=== PATIENT | male | born 1945 | race Caucasian/White ===

== ENCOUNTER 2018-07-05 16:18 | Outpatient (CLI) | payer MEDICARE, SELFPAY ==
[2018-07-05 17:01] LABS: Hemoglobin A1C 7.2 % (4.5-6.2)
[2018-07-05 17:52] LABS: Cholesterol 191 mg/dL (50-200); HDL Cholesterol 42 mg/dL (40-60); LDL CHOLESTEROL 132 mg/dL (<100); Triglyceride 82 mg/dL (30-150)
== END 2018-07-05 16:38 ==
PROVIDERS: PCP Family Medicine; Visit Provider Family Medicine
DX: E11.9 Type 2 diabetes mellitus without complications (principal); I25.10 Atherosclerotic heart disease of native coronary artery without angina pectoris
CPT/HCPCS: 36415; 80061; 83721; 83036

== ENCOUNTER 2019-01-18 09:23 | Outpatient (CLI) | payer MEDICARE, SELFPAY ==
[2019-01-20 11:45] LABS: Hemoglobin A1C 9.7 % (4.5-6.2)
== END 2019-01-18 09:43 ==
PROVIDERS: PCP Family Medicine; Visit Provider Family Medicine
DX: E11.9 Type 2 diabetes mellitus without complications (principal)
CPT/HCPCS: 36415; 83036

== ENCOUNTER 2019-09-27 18:36 | Emergency (ER) | payer MEDICARE, SELFPAY ==
[2019-09-27] VITALS (24 sets, daily range): BP systolic 108–156; BP diastolic 53–87; PULSE 68–87; RESP 8–35; TEMP 36.5; O2SAT 88–97
--- NOTE | 2019-09-27 18:45 | DI.CT_ITS ---
EXAM: CT THORAX CTA CLINICAL HISTORY: Chest pain after lifting. TECHNIQUE: Imaging Protocol: Axial CT angiography was performed with multi-slice acquisition and mu lti-planar and/or 3D reconstructions. CONTRAST MATERIAL: Intravenous: Omnipaque 350 Contrast volume:100 mL COMPARISON: PORTABLE CHEST ONE VIEW from 08/03/2015 FINDINGS: Pulmonary Arteries: No evidence of filling defect to suggest pulmonary emboli. Tracheobronchial tree: Patent where visualized. Mediastinum and Sheree: No dominant adenopathy or fluid collection. Pulmonary parenchyma: No consolidation or dominant measurable mass. There is scarring or atelectasis in the right middle lobe. Pleura: No effusion or pneumothorax. Heart: Mild cardiomegaly. Moderate coronary artery calcification. Aorta: Thoracic aorta non-dilated. No evidence of dissection. Atherosclerosis. Upper abdomen: Unremarkable. Bones: Degenerative changes. Soft tissues: Unremarkable. IMPRESSION: 1. No evidence of pulmonary embolism, thoracic aortic dissection or aneurysm. 2. No acute pulmonary process. RADIATION DOSE DELIVERED: Total DLP DATA REPOSITORY: All CT scans at this facility are submitted to the National Radiology Data Registry (NRDR) Dose Index Registry (DIR) with the [employer] (ACR). RADIATION OPTIMIZATION: All CT scans at this facility use at least one of these dose optimization te chniques: automated exposure control; mA and/or kV adjustment per patient size (includes targeted exa ms where dose is matched to clinical indication); or iterative reconstruction.
--- NOTE | 2019-09-27 18:56 | ED.GENADUL_ITS ---
Discharge Plan Discharge Details Chief Complaint: Chest Pain Primary Care Provider: Jasen Tineo ED Provider: Ly Louis Home Meds and New Rx's Prescriptions: No Action ibuprofen 200 MG capsule 200 mg PO PRN Qty: 2 RF: 0 acetaminophen [Tylenol Extra Strength] 500 MG tablet 500 mg PO PRN Qty: 1 RF: 0 nitroglycerin 0.4 MG tablet, sublingual 0.4 mg Sublingual PRN Qty: 25 RF: 0 sildenafil (pulm.hypertension) 20 MG tablet 20 - 100 mg PO DAILY PRNQty: 30 RF: 1 metformin 1,000 mg tablet 1,000 mg PO BID Qty: 180 RF: 3 aspirin 325 mg Tablet 325 mg PO PRN PRNRF: 0 Medical Decision Making 1858: 74-year-old male presents with midsternal chest pain which was sudden onset after doing some heavy lifting. Patient states that he lifted a picnic table and began with acute onset of 9 out of 10 chest pain. This has remained constant for the last 2 hours. Associated symptoms include mild diaphoresis which has resolved. Denies shortness of breath, no fever no cough, no nausea or vomiting. No lower extremity swelling. Does have a strong significant history of coronary artery disease with STEMI with stents placed. Cardiac work-up ordered patient did take 325 mg of aspirin prior to arrival. Nitroglycerin sub-lingual 0.4 mg x 3 as needed pain ordered. Chest CTA to rule out aortic aneurysm ordered. Serial troponins ordered. 0: Patient was unable to get chest CTA due to technical difficulties with the machine overheating. Chest x-ray ordered in its place. Upon review of medical records is noted that patient had a coronary stent placed to the LAD 2003, had a STEMI in 2007, was admitted and transferred to [facility] for unstable angina with an elevated troponin of 0.88 in August 2015. 1952: Initial troponin is elevated at 0.50. Due to the patient's history of poorly controlled diabetes, and STEMI and cardiac history patient should be admitted. Will consult with cardiology. COMPARISON: CR PORTABLE CHEST ONE VIEW 08/03/2015 10:47 PM FINDINGS: Lungs: Unremarkable. No consolidation. Pleural space: Unremarkable. No pleural effusion. No pneumothorax. Heart/Mediastinum: Unremarkable. No cardiomegaly. Normal contour of great vessels. Bones/joints: Unremarkable. IMPRESSION: 1. No acute findings. 2. No infiltrates or consolidation. 3. No edema. 4. No pleural effusions. Thank you for allowing us to participate in the care of your patient. Dictated and Authenticated by: Jed Mccarthy MD 1945: [facility] cardiology paged. 1954: RN at bedside giving sublingual nitro chest pain and pressure is dropped from a 9 to 7 out of 10 after for sublingual nitro. RN did state the patient f ell asleep sat dropped to 88% on room air patient placed on 2 L oxygen nasal cannula. Exam: CT Angiography Chest With Contrast Exam date and time: 09/27/2019 7:26 PM Age: 74 years old Clinical indication: Prior surgery; Surgery type: Per PT: 2 stents; Patient HX: Chest pain after lifting COMPARISON: CR PORTABLE CHEST ONE VIEW 08/03/2015 10:47 PM FINDINGS: Pulmonary arteries: Pulmonary arteries are well opacified bilaterally. No embolism. Aorta: Unremarkable. No aortic aneurysm. No aortic dissection. Lungs: Minimal medial segment right middle lobe atelectasis, otherwise clear lung phillips. No infiltrates, nodules, or edema. Pleural space: No pleural effusions. Heart: Coronary artery stents. Mild cardiomegaly with left ventricular enlargement. No pericardial effusion. Lymph nodes: Unremarkable. No enlarged lymph nodes. Bones/joints: Unremarkable. No acute fracture. Soft tissues: Chest wall soft tissues are unremarkable. No evidence contusion or soft tissue swelling. No muscular disruption evident.. IMPRESSION: 1. No evidence of pulmonary arterial embolism. 2. Minimal medial segment right middle lobe atelectasis. Lungs are otherwise clear. 3. Coronary artery stent. 4. Cardiomegaly with left ventricular enlargement. 5. Soft tissues of the chest wall are unremarkable. Thank you for allowing us to participate in the care of your patient. Dictated and Authenticated by: Jed Mccarthy MD 2009: Spoke with Dr. Lambert with [facility] cardiology discussed complete patient case excepting is Dr. Hwang they accept patient for transfer to [facility]. He recommends heparin and antiplatelet therapy. Patient is now requiring more oxygen 91% on 3 L nasal cannula. His pain is now down to 5 out of 10. 2111: EMS here for transport. Heparin drip infusing. Medical Records Medical records reviewed: Yes I reviewed the patient's medical records. Medical records narrative: Discharge summary pulled from [facility] from August 05, 2015 was admitted and discharged after 2 stents placed to the LAD and RCA. He also had an anterior STEMI in 05 May 2004 which he also underwent heart catheterization for he had a 95% stenosis of the proximal LAD at that time. He was discharged with instructions to follow-up with local cardiology within the next few weeks which we do not have any records from. Lab Data Lab results reviewed: Yes I reviewed the patient's lab results. ECG Data Attestation: I personally reviewed and interpreted this ECG (s) as follows: Prior ECG tracings: available for review Interpretation: EKG obtained and reviewed by Dr. Bustamante ER attending which shows no STEMI, right bundle branch block which is old T wave changes. Old EKG was reviewed from 2015 which shows no significant changes. His right bundle branch block does appear somewhat more prominent. HPI General Mode of arrival: ambulatory . Date/Time Provider Initiated Documentation: 09/27/19 18:36 . Limitations to Documentation: no limitations . Information obtained by: patient . HPI Narrative: 74-year-old male presents with chest pain which began suddenly approximately 2 hours ago while lifting a picnic table. Patient reports sudden onset midsternal chest pain that extends across his chest. He denies any radiation to his neck or back. He does have a history of coronary artery disease with GA and stents placed did have a STEMI in 2007. He also is a type II diabetic. He did take 325 mg of aspirin prior to arrival. He rates his pain about a 9 out of 10 upon arrival. Which is moderate to severe. Timing is constant. He denies shortness of breath no fever no lower extremity swelling. Related Data Home Medications Medication Instructions Recorded Confirmed ibuprofen 200 mg PO PRN #2 11/25/13 09/27/19 acetaminophen [Tylenol Extra 500 mg PO PRN #1 12/23/13 09/27/19 Strength] nitroglycerin 0.4 mg SUBLINGUAL PRN #25 tab-cap 02/13/17 09/27/19 sildenafil (pulm.hypertension) 20 - 100 mg PO DAILY PRN #30 08/07/17 09/27/19 tab-cap metformin 1,000 mg tablet 1,000 mg PO BID #180 tab 01/21/19 09/27/19 aspirin 325 mg PO PRN PRN 04/25/20 04/25/20 Previous Rx's Medication Instructions Recorded nitroglycerin 0.4 mg SUBLINGUAL PRN #25 tab-cap 02/13/17 metformin 1,000 mg tablet 1,000 mg PO BID #180 tab 01/21/19 Allergies Allergy/AdvReac Type Severity Reaction Status Date / Time No Known Allergies Allergy Unverified 01/17/19 14:29 General Stated Complaint: Chest Pain [place]: 2 Review of Systems Narrative: Constitutional: Negative for weight loss, alert and oriented, well groomed, normal body habitus, appears comfortable. HEENT: Denies trauma, headaches, blurry vision, nasal discharge, sore throat, trouble swallowing. Chest: Denies palpitations, irregular rhythm, hypertension. Reports sudden onset midsternal chest pain. Does have a history of coronary artery disease. Respiratory: Denies Shortness of breath, cough, hemoptysis. GI: Denies abdominal pain, nausea, vomiting, diarrhea, constipation. : Denies dysuria, hematuria, flank pain, rectal bleeding. Neuro: Denies dizziness, blurry vision, weakness, syncope, headache or facial numbness. Skin: No history of skin cancer, no suspicious lesions. Musculoskeletal: Moves all 4 extremities without difficulty, no lower extremity edema. Chest pain is somewhat reproducible with palpation. Hematologic: Denies easy bruising, intolerance to heat or cold, hair loss. [facility] Medical History CAD (coronary artery disease) (Chronic) Diabetes mellitus (Chronic) Surgical History Cholecystectomy (04/30/11) DR. OROPEZA History of coronary artery stent placement (Chronic) Tonsillectomy and adenoidectomy Social History Smoking/Tobacco Use Status: Former Tobacco Use Quit Date: 06/04/1966 Second Hand Exposure: Yes Alcohol Intake: current Alcohol Intake frequency: holidays/special occasions only Alcohol type: wine Drug use: Never Substance use type: does not use current occupation: [employer] Pets and animals: Yes Pets and animals: dog(s) Duration: 30-45 minutes/day Frequency: daily Gisel/Evangelical: Latter-Day Special gisel needs: No Do you feel safe at home: Yes Do you feel safe in your relationship?: Yes Exam Narrative Exam Narrative: Constitutional: Alert and oriented x3. Appears stated age. Normal body habitus. Head: Normocephalic, no trauma. Eyes: Pupils PERRLA, Red reflex noted, EOM's intact. Eyelids symmetrical without lesions, discharge, or swelling. ENT: Bilateral TM's WNL, External ear normal to inspection, no mastoid TTP, swelling, or erythema, Nasal turbinates WNL, no nasal discharge. Normal dentition, Posterior pharynx WNL, no exudate. Chest: RRR, Normal S1, S2, distal pulses intact. Chest pain is somewhat reproducible with palpation. Also reports chest pressure. Does have right bundle branch block on EKG which is more prominent and some T wave changes. Resp: Lungs clear to auscultation bilaterally, no wheezes, rales, or rhonchi. Musculoskeletal: Normal gait, 5/5 strength to all four extremities. Skin: No suspicious rashes or lesions. Capillary refill less than 2 sec. Neurologic: Cranial nerves II-XII intact. Alert and oriented x 3. DTR's intact. Extremities: No edema noted to his lower extremities. Hematologic/Lymphatic: No ecchymosis, no lymphadenopathy. Course Vital Signs Vital signs: Vital Signs Temperature 36.5 C 09/27/19 18:40 Pulse 76 09/27/19 18:40 Respiratory Rate 20 09/27/19 18:40 Blood Pressure 156/87 H 09/27/19 18:40 Pulse Oximetry 92 L 09/27/19 18:40 Temperature 36.5 C 09/27/19 18:40 Temperature Source Temporal Artery Scan 09/27/19 18:40 Pulse 76 09/27/19 18:40 Respiratory Rate 20 09/27/19 18:45 Respiratory Effort Non-Labored 09/27/19 18:45 Respiratory Depth Normal 09/27/19 18:45 Respiratory Pattern Normal 09/27/19 18:45 Blood Pressure 156/87 H 09/27/19 18:40 Blood Pressure Position Sitting 09/27/19 18:40 Pulse Oximetry 92 L 09/27/19 18:40 Oxygen Delivery Method Room Air 09/27/19 18:40 Oxygen Flow Rate 0 09/27/19 18:40 Pain Level 9 09/27/19 18:45 Critical Care Time Critical Care Time Critical Care Time: Yes Total Critical Care Time: 35 Attestation: At this time patient presented with active chest pain and pressure who is high risk requiring sequential nitroglycerin sublingual also with some minor EKG changes, active angina and non-ST elevation GA. He does have a ca rdiac enzyme which is elevated at 0.50. he is requiring oxygen via nasal cannula due to being hypoxic at 88% on room air. He is also requiring heparin infusion and was given oral antiplatelet therapy. I did spend time including but not limited to 30 minutes of critical care time which included gathering history from old records, discussed patient case with cardiology at another facility, interpreting lab values, speaking with family and arranging transfer to another facility. Distribution Operations Supervisor transfer was necessary due to heparin drip infusing and hemodynamic cardiac monitoring. This treatment was required to stabilize his chest pain and to prevent imminent deterioration of condition.
[2019-09-27 19:11] LABS: Abs Immature Grans 0.02 k/cumm (0.0-0.09); Absolute Basophil Count 0.02 k/cumm (0.0-0.2); Absolute Eosinophil Count 0.08 k/cumm (0.0-0.7); Absolute Lymphocyte Count 1.59 k/cumm (1.2-3.4); Absolute Monocyte Count 0.81 k/cumm (0.11-0.7); Absolute Neutrophil Count 8.44 k/cumm (1.2-6.7); Basophils % 0.2; Eosinophils % 0.7; HCT 46.7 % (40.0-50.0); HGB 16.1 g/dL (13.5-17.5); Immature Grans % 0.2 %; Lymphocytes % 14.5; Mean Corp. HGB Concentration 34.5 g/dL (32.0-36.0); Mean Corpuscular Hemoglobin 32.3 pg (27.0-33.0); Mean Corpuscular Volume 93.6 fL (80-95); Monocytes % 7.4; Platelet Count 229 x1000/uL (130-400); RBC 4.99 m/cumm (4.50-6.00); RBC Distribution Width 13.3 % (11.8-14.1); White Blood Cell Count 10.96 k/cumm (4.4-10.8)
--- NOTE | 2019-09-27 19:15 | DI.RAD_ITS ---
EXAM: XR CHEST 2V PA LATERAL CLINICAL HISTORY: Chest pain TECHNIQUE: 2D digital imaging was performed. COMPARISON: No exams were available for comparison FINDINGS: MEDIASTINUM: Normal. HEART: Normal. PULMONARY VASCULATURE: Normal. LUNGS: Clear. PLEURAL SPACE: No pleural effusion or pneumothorax. BONE:Normal. OTHER FINDINGS:Normal. IMPRESSION: No acute pulmonary findings. DATA REPOSITORY: RADIATION DOSE DELIVERED:
[2019-09-27 19:21] LABS: ALT 26 U/L (16-63); AST 16 U/L (15-37); Albumin 4.2 g/dL (3.4-5.0); Alkaline Phosphatase 77 U/L (46-116); Anion Gap 8.9 mmol/L (3-11); BUN 28 mg/dL (7-18); Bilirubin, Total 0.9 mg/dL (0.2-1.0); CO2 27.1 mmol/L (21.0-32.0); CREATININE 1.07 mg/dL (0.70-1.30); Calcium 9.4 mg/dL (8.5-10.1); Chloride 102 mmol/L (98-107); Glucose 257 mg/dL (74-106); Magnesium 1.9 mg/dL (1.8-2.4); Potassium 3.9 mmol/L (3.5-5.1); Sodium 138 mmol/L (136-145); Total Protein 7.7 g/dL (6.4-8.2)
--- NOTE | 2019-09-27 19:28 | DI.VRAD_ITS ---
PROCEDURE INFORMATION: Exam: XR Chest, 2 Views Exam date and time: 09/27/2019 7:21 PM Age: 74 years old Clinical indication: Other: Chest pain TECHNIQUE: Imaging protocol: XR of the chest Views: 2 views. COMPARISON: CR PORTABLE CHEST ONE VIEW 08/03/2015 10:47 PM FINDINGS: Lungs: Unremarkable. No consolidation. Pleural space: Unremarkable. No pleural effusion. No pneumothorax. Heart/Mediastinum: Unremarkable. No cardiomegaly. Normal contour of great vessels. Bones/joints: Unremarkable. IMPRESSION: 1. No acute findings. 2. No infiltrates or consolidation. 3. No edema. 4. No pleural effusions. Dictated and Authenticated by: Jed Mccarthy MD. Ordering:SENG Modi MD
[2019-09-27] MEDS: Normal Saline - Diluent 50 ML VIAL IV (19:33)
[2019-09-27] MEDS: Omnipaque 350 MG/ML 100 ML BTL IJ (19:33)
--- NOTE | 2019-09-27 19:47 | DI.VRAD_ITS ---
PROCEDURE INFORMATION: Exam: CT Angiography Chest With Contrast Exam date and time: 09/27/2019 7:26 PM Age: 74 years old Clinical indication: Prior surgery; Surgery type: Per PT: 2 stents; Patient HX: Chest pain after lifting TECHNIQUE: Imaging protocol: Computed tomographic angiography of the chest with intravenous contrast. 3D rendering: MIP and/or 3D reconstructed images were created by the technologist. COMPARISON: CR PORTABLE CHEST ONE VIEW 08/03/2015 10:47 PM FINDINGS: Pulmonary arteries: Pulmonary arteries are well opacified bilaterally. No embolism. Aorta: Unremarkable. No aortic aneurysm. No aortic dissection. Lungs: Minimal medial segment right middle lobe atelectasis, otherwise clear lung phillips. No infiltrates, nodules, or edema. Pleural space: No pleural effusions. Heart: Coronary artery stents. Mild cardiomegaly with left ventricular enlargement. No pericardial effusion. Lymph nodes: Unremarkable. No enlarged lymph nodes. Bones/joints: Unremarkable. No acute fracture. Soft tissues: Chest wall soft tissues are unremarkable. No evidence contusion or soft tissue swelling. No muscular disruption evident.. IMPRESSION: 1. No evidence of pulmonary arterial embolism. 2. Minimal medial segment right middle lobe atelectasis. Lungs are otherwise clear. 3. Coronary artery stent. 4. Cardiomegaly with left ventricular enlargement. 5. Soft tissues of the chest wall are unremarkable. Dictated and Authenticated by: Jed Mccarthy MD. Ordering:SENG Modi MD
--- NOTE | 2019-09-27 19:57 | NUR.NOTE ---
Nursing Note: Placed patient on oxygen, especially as patient fell asleep and oxygen sat dropped to 88%. PA aware.
[2019-09-27] MEDS: Clopidogrel 300 MG TAB 600 MG PO (20:27)
[2019-09-27 20:48] LABS: Prothrombin Time 9.9 sec (9.3-11.0)
[2019-09-27 21:01] LABS: PTT Activated 23.2 sec (21.0-31.4)
== END 2019-09-27 21:20 | disposition short-term general hospital (02) ==
PROVIDERS: Emergency Provider Registered Nurse Emergency; PCP Family Medicine
DX: I21.4 Non-ST elevation (NSTEMI) myocardial infarction (principal); Z95.818 Presence of other cardiac implants and grafts; E11.9 Type 2 diabetes mellitus without complications; Z79.84 Long term (current) use of oral hypoglycemic drugs
CPT/HCPCS: 71275; 80053; 93005; 96365; 96376; 99285; 71046; 83735; 84484; 85025; 85610; 85730; 93010; J3490

== ENCOUNTER → 2019-10-30 13:14 | Outpatient (BNVA) | payer MEDICARE, SELFPAY | PROVIDERS: PCP Family Medicine; Referring Provider Family Medicine; Visit Provider Urology | DX: N47.1 Phimosis (principal); N52.9 Male erectile dysfunction, unspecified; E11.9 Type 2 diabetes mellitus without complications; Z79.84 Long term (current) use of oral hypoglycemic drugs | CPT/HCPCS: 99203; 99214 ==

== ENCOUNTER 2020-04-14 08:55 | Outpatient (CLI) | payer MEDICARE, SELFPAY ==
[2020-04-14 12:56] LABS: Calculated LDL 114 mg/dL (<100); Cholesterol 176 mg/dL (<200); HDL Cholesterol 51 mg/dL (40-60); Triglyceride 58 mg/dL (<150)
== END 2020-04-14 09:15 ==
PROVIDERS: PCP Family Medicine; Visit Provider Family Medicine
DX: E78.5 Hyperlipidemia, unspecified (principal); R73.9 Hyperglycemia, unspecified
CPT/HCPCS: 36415; 80061; 83036

== ENCOUNTER 2021-04-20 09:40 | Outpatient (CLI) | payer MEDICARE, SELFPAY ==
[2021-04-20 13:05] LABS: Potassium 4.8 mmol/L (3.5-5.1)
[2021-04-20 13:36] LABS: Hemoglobin A1C 5.9 % (<5.7)
== END 2021-04-20 09:41 | disposition home or self-care (01) ==
LOC: LOS 09:41
PROVIDERS: PCP Family Medicine; Referring Provider Family Medicine; Visit Provider Family Medicine
DX: I10 Essential (primary) hypertension (principal); R73.9 Hyperglycemia, unspecified
CPT/HCPCS: 36415; 82565; 83036; 84132

== ENCOUNTER 2022-01-08 23:59 | Emergency (ER) | payer MEDICARE, SELFPAY ==
[2022-01-09] VITALS (7 sets, daily range): BP systolic 118–124; BP diastolic 53–91; PULSE 57–67; RESP 12–24; TEMP 36.7; O2SAT 94–96
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
[2022-01-09] MEDS: oxyCODONE 5 MG TAB PO (01:27)
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
== END 2022-01-09 02:58 | disposition home or self-care (01) ==
PROVIDERS: Emergency Provider Physician Assistant; PCP Family Medicine
DX: S22.32XA Fracture of one rib, left side, initial encounter for closed fracture (principal); S40.012A Contusion of left shoulder, initial encounter; E11.9 Type 2 diabetes mellitus without complications; I25.10 Atherosclerotic heart disease of native coronary artery without angina pectoris; I25.2 Old myocardial infarction; Z95.1 Presence of aortocoronary bypass graft; Z79.84 Long term (current) use of oral hypoglycemic drugs; Z79.82 Long term (current) use of aspirin; Z87.891 Personal history of nicotine dependence; V86.99XA Unspecified occupant of other special all-terrain or other off-road motor vehicle injured in nontraffic accident, initial encounter
CPT/HCPCS: 71250; 99284; 73030

== ENCOUNTER 2022-05-22 03:14 | Outpatient (CLI) | payer MEDICARE, SELFPAY ==
[2022-05-22 18:44] LABS: Lab Add On Test done
[2022-05-22 18:49] LABS: CREATININE 1.1 mg/dL (0.70-1.30); Estimated GFR 69.14 (mL/min/1.73m2)
== END 2022-05-22 03:15 | disposition home or self-care (01) ==
LOC: LOS 03:14
PROVIDERS: PCP Family Medicine; Visit Provider Family Medicine
DX: E11.9 Type 2 diabetes mellitus without complications (principal)
CPT/HCPCS: 36415; 80061; 82565

== ENCOUNTER 2022-05-22 13:54 | Outpatient (CLI) | payer MEDICARE, SELFPAY ==
[2022-05-22 13:39] LABS: Calculated LDL 80 mg/dL (<100); Cholesterol 145 mg/dL (<200); HDL Cholesterol 52 mg/dL (40-60); Triglyceride 69 mg/dL (<150)
== END 2022-05-22 13:55 | disposition home or self-care (01) ==
LOC: LBO 13:55
PROVIDERS: PCP Family Medicine; Visit Provider Family Medicine
DX: E78.5 Hyperlipidemia, unspecified (principal)
CPT/HCPCS: 80061

== ENCOUNTER 2023-06-11 05:22 | Outpatient (CLI) | payer MEDICARE, SELFPAY ==
[2023-06-11 12:59] LABS: CREATININE 1.2 mg/dL (0.70-1.30)
== END 2023-06-11 05:23 | disposition home or self-care (01) ==
LOC: LOS 05:22
PROVIDERS: PCP Family Medicine; Visit Provider Family Medicine
DX: I10 Essential (primary) hypertension (principal)
CPT/HCPCS: 36415; 82565

== ENCOUNTER → 2023-09-10 03:30 | Outpatient (CLI) | payer MEDICARE, SELFPAY ==
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
== END ==
PROVIDERS: PCP Family Medicine; Visit Provider Family Medicine
DX: M25.561 Pain in right knee (principal); M17.11 Unilateral primary osteoarthritis, right knee; M22.8X1 Other disorders of patella, right knee; Z87.81 Personal history of (healed) traumatic fracture
CPT/HCPCS: 73562

== ENCOUNTER 2023-12-12 17:23 | Emergency (ER) | payer MEDICARE, SELFPAY ==
[2023-12-12] VITALS (23 sets, daily range): BP systolic 126–177; BP diastolic 53–77; PULSE 61–76; RESP 0–22; TEMP 36.2; O2SAT 94–98
--- NOTE | 2023-12-12 17:15 | RT.EKG_ITS ---
APPROVED REPORT Exam: Resting ECG Reason for Exam: Syncope Patient Location: E HR:74 bpm ECG Measurements Heart Rate 74 AXIS AK 171 P 50 QRSd 175 QRS -47 QT 448 T 93 QTc 497 Conclusion Sinus rhythm...normal P axis, V-rate 60- 99 IVCD, consider RBBB...QRSd>120mS, terminal axis(90,270) Anteroseptal infarct, age indeterminate...Q >35mS, T neg, V1-V2 PHysician: RBBB, similiar to prior ekg on 09/21
--- NOTE | 2023-12-12 17:30 | DI.RAD_ITS ---
Exam(s) XR CHEST 1V IN DI DEPT EXAM: XR CHEST 1V IN DI DEPT CLINICAL HISTORY: syncope, eval for chest pathology TECHNIQUE: 2D digital imaging was performed of the chest. One image was obtained. An AP view was ob tained. COMPARISON: CR,XR XR CHEST 2V PA LATERAL from 09/27/2019 FINDINGS: MEDIASTINUM: Normal. HEART: Normal. Status post CABG. PULMONARY VASCULATURE: Normal. LUNGS: Clear. PLEURAL SPACE: No pleural effusion or pneumothorax. BONE:Within normal limits for the patient's age. Sternal wires are in place. OTHER FINDINGS:Normal. IMPRESSION: No acute pulmonary findings. DATA REPOSITORY: RADIATION DOSE DELIVERED:
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
[2023-12-12] MEDS: Normal Saline 500 ML IV ×2 (17:48→20:17)
[2023-12-12 17:55] LABS: Abs Immature Grans 0.03 10^3/uL (0.0-0.06); Absolute Basophil Count 0.04 10^3/uL (0.0-0.2); Absolute Eosinophil Count 0.12 10^3/uL (0.0-0.7); Absolute Lymphocyte Count 1.71 10^3/uL (1.2-3.4); Absolute Neutrophil Count 5.09 10^3/uL (1.2-6.7); Basophils % 0.5 %; Eosinophils % 1.5 %; HCT 40.5 % (40.0-50.0); HGB 14.2 g/dL (13.5-17.5); Immature Grans % 0.4 %; MCH 33.6 pg (27.0-33.0); MCHC 35.1 % (32.0-36.0); MCV 96 fL (80-95); MPV 10.1 fL (8.0-11.0); Monocytes % 10.3 %; Neutrophils % 65.3 %; Platelet Count 194 10^3/uL (130-400); RBC 4.22 10^6/uL (4.36-5.78); RDW 12.9 % (11.8-14.1); RDW-SD 45.4 fL; WBC 7.79 10^3/uL (4.4-10.8)
[2023-12-12 18:08] LABS: PTT Activated 25.4 sec (23.6-32.8); Prothrombin Time 9.9 sec (9.1-11.1)
[2023-12-12 18:27] LABS: ALT 22 U/L (16-63); AST 15 U/L (15-37); Albumin 3.9 g/dL (3.4-5.0); Alkaline Phosphatase 58 U/L (46-116); Anion Gap 7.1 mmol/L (3-11); BUN 27 mg/dL (7-18); Bilirubin, Total 0.76 mg/dL (0.2-1.0); CO2 27.9 mmol/L (21.0-32.0); Calcium 9.1 mg/dL (8.5-10.1); Chloride 108 mmol/L (98-107); Estimated GFR 77.04 (mL/min/1.73m2); Glucose 120 mg/dL (74-106); NT-proBNP 115 pg/mL (<300); Potassium 3.8 mmol/L (3.5-5.1); Sodium 143 mmol/L (136-145); TSH (W/Ref FT4) 2.31 uIU/mL (0.36-3.74); Total Protein 7.1 g/dL (6.4-8.2); Troponin I < 50 ng/L (< or =60)
[2023-12-12 18:36] LABS: Bilirubin Negative (Negative); Blood Negative (Negative); Clarity Clear (Clear); Glucose Negative (Negative); Ketones Negative (Negative); Leukocyte Esterase Negative (Negative); Nitrite Negative (Negative); Specific Gravity 1.025 (1.005-1.025); pH 5.5 (5-8)
[2023-12-12 21:11] LABS: Troponin I < 50 ng/L (< or =60)
== END 2023-12-12 22:16 | disposition home or self-care (01) ==
PROVIDERS: Emergency Provider Student in an Organized Health Care Education/Training Program; PCP Family Medicine
DX: R55 Syncope and collapse (principal); S50.811A Abrasion of right forearm, initial encounter; R94.31 Abnormal electrocardiogram [ECG] [EKG]; I25.10 Atherosclerotic heart disease of native coronary artery without angina pectoris; I25.2 Old myocardial infarction; E11.9 Type 2 diabetes mellitus without complications; E78.00 Pure hypercholesterolemia, unspecified; Z95.1 Presence of aortocoronary bypass graft; Z95.5 Presence of coronary angioplasty implant and graft; Z79.82 Long term (current) use of aspirin; Z79.84 Long term (current) use of oral hypoglycemic drugs; Z87.891 Personal history of nicotine dependence; V43.52XA Car driver injured in collision with other type car in traffic accident, initial encounter
CPT/HCPCS: 80053; 93005; 96360; 96361; 99285; 70450; 71045; 81003; 83880; 84443; 84484; 85025; 85610; 85730; 93010; 99284

== ENCOUNTER 2024-01-31 13:10 | Outpatient (CLI) | payer MEDICARE, SELFPAY ==
--- NOTE | 2024-01-31 | DI.RAD_ITS ---
Exam(s) XR CHEST 2V PA LATERAL EXAM: XR CHEST 2V PA LATERAL CLINICAL HISTORY: PERSISTENT COUGH, R05.3 TECHNIQUE: 2D digital imaging was performed. Two views. COMPARISON: CR XR CHEST 1V IN DI DEPT from 12/12/2023 FINDINGS: HEART: Normal size. Status post CABG. Aorta: tortuous. PULMONARY VASCULATURE: Normal. MEDIASTINUM: Unremarkable. LUNGS: Clear. PLEURAL SPACE: No pleural effusion or pneumothorax. BONE:Unremarkable for age. SOFT TISSUES: Unremarkable. IMPRESSION: No acute abnormality. DATA REPOSITORY: RADIATION DOSE DELIVERED:
== END 2024-01-31 13:30 ==
LOC: DI 13:10
PROVIDERS: PCP Family Medicine; Visit Provider Physician Assistant Medical
DX: R05.3 Chronic cough (principal)
CPT/HCPCS: 71046

== ENCOUNTER 2024-02-07 16:11 | Outpatient (REF) | payer MEDICARE, SELFPAY ==
[2024-02-08 19:40] LABS: HIV-1/2 Ag & Ab Screen Negative (Negative)
[2024-02-08 20:47] LABS: Hepatitis C Ab w Rflx HCV PCR Negative (Negative)
[2024-02-11 12:16] LABS: Syphilis Serology (RPR) Negative (Negative)
[2024-02-11 12:41] LABS: Chlamydia Result Negative (Negative); GC Result Negative (Negative)
== END 2024-02-07 16:12 | disposition home or self-care (01) ==
LOC: LBN 16:11
PROVIDERS: PCP Family Medicine; Visit Provider Physician Assistant Medical
DX: Z11.3 Encounter for screening for infections with a predominantly sexual mode of transmission (principal)
CPT/HCPCS: 86803; 87389; 87491; 87591; 86592

== ENCOUNTER 2024-07-03 09:51 | Emergency (ER) | payer MEDICARE, SELFPAY ==
[2024-07-03] VITALS (20 sets, daily range): BP systolic 101–170; BP diastolic 48–91; PULSE 54–72; RESP 10–17; TEMP 36–36.6; O2SAT 94–100
--- NOTE | 2024-07-03 09:45 | RT.EKG_ITS ---
APPROVED REPORT Exam: Resting ECG Reason for Exam: chest pain Patient Location: E HR:64 bpm ECG Measurements Heart Rate 64 AXIS WV 235 P 50 QRSd 174 QRS -20 QT 464 T 104 QTc 478 Conclusion Sinus rhythm 64 ST elevation 2,3,AVF Inferior infarct
--- NOTE | 2024-07-03 10:00 | DI.RAD_ITS ---
Exam(s) XR PORTABLE CHEST AP EXAM: XR PORTABLE CHEST AP CLINICAL HISTORY: Chest pain TECHNIQUE: 2D digital imaging was performed of the chest. One image was obtained. An AP view was ob tained. COMPARISON: CR XR CHEST 2V PA LATERAL from 01/31/2024 FINDINGS: MEDIASTINUM: Normal. HEART: Normal. Status post CABG. PULMONARY VASCULATURE: Normal. LUNGS: Clear. PLEURAL SPACE: No pleural effusion or pneumothorax. BONE:Within normal limits for the patient's age. Sternal wires are in place. OTHER FINDINGS:Normal. IMPRESSION: No acute pulmonary findings. DATA REPOSITORY: RADIATION DOSE DELIVERED:
--- NOTE | 2024-07-03 10:15 | RT.EKG_ITS ---
APPROVED REPORT Exam: Resting ECG Reason for Exam: chest pain Patient Location: E HR:63 bpm ECG Measurements Heart Rate 63 AXIS [place] 195 P 3 QRSd 176 QRS -40 QT 428 T 112 QTc 436 Conclusion Sinus rhythm. 63 ST elevation 2,3, AVF
--- NOTE | 2024-07-03 10:17 | W.ED.GENAD ---
Discharge Plan Disposition Patient Disposition: Transfer-Acute Inpatient Care Specific Acute Inpt Facility: [facility] Condition: Serious Discharge Details Clinical Impression: ST elevation myocardial infarction (STEMI) Primary Care Provider: Jasen Tineo ED Provider: Dahiana Moore Home Meds and New Rx's Prescriptions: No Action aspirin [Adult Low Dose Aspirin] 81 mg tablet,delayed release (DR/EC) 81 mg PO DAILY Qty: 90 3RF (DME) blood-glucose meter [Accu-Chek Opal Plus Meter] Misc See Rx Instructions .ROUTE .MEDSUPPLY Qty: 1 0RF Rx Instructions: As directed ibuprofen 200 MG capsule 200 mg PO PRN Qty: 2 acetaminophen [Tylenol Extra Strength] 500 MG tablet 500 mg PO PRN Qty: 1 Patient Comments: PT STATES HE IS TAKING PRN SOMETIMES QOD, STATES HE IS TAKING 1 TAB OF 700MG, BUT MAY BE MISTAKEN.HE (DME) lancets [Accu-Chek Softclix Lancets] Misc See Rx Instructions .ROUTE .MEDSUPPLY Qty: 100 3RF Rx Instructions: Test daily metformin 1,000 mg tablet 1,000 mg PO BID Qty: 180 3RF (DME) Accu-Chek Opal Plus test strp Strip See Rx Instructions .ROUTE .MEDSUPPLY Qty: 100 3RF Rx Instructions: test once/day nitroglycerin 0.4 mg tablet, sublingual 0.4 mg Sublingual PRN Qty: 25 0RF sildenafil (pulm.hypertension) 20 mg tablet 20 - 100 mg PO DAILY PRN (Reason: sexual activity) Qty: 30 4RF HPI General Date/Time Provider Initiated Documentation: 07/03/24 09:58. Limitations to Documentation: no limitations. Information obtained by: patient and family. HPI Narrative: 79-year-old gentleman with past medical history of CAD, status post CABG x 3 (last 2019), diabetes presents for chest pain. Reports severe chest pain that started this morning while he was driving a car, around 8 AM. It radiates across his chest and into his throat and jaw. It is not associated with shortness of breath. Reports that it started at 10 out of 10 but has improved slightly. He does not take his baby aspirin daily. He did not take any medications prior to arrival. He came directly to the hospital when symptoms started. He reports slight improvement of symptoms. He denies any nausea vomiting or diaphoresis. He has not had any stress testing or other cardiac evaluation since his last CABG. Related Data Home Medications ?Medication ?Instructions ?Recorded ?Confirmed ibuprofen 200 mg capsule 200 mg PO PRN ##2 11/25/13 07/03/24 acetaminophen 500 mg tablet 500 mg PO PRN ##1 12/23/13 07/03/24 (Tylenol Extra Strength) aspirin 81 mg tablet,delayed 81 mg PO DAILY #90 tabs 10/10/19 07/03/24 release (Adult Low Dose Aspirin) blood-glucose meter (Accu-Chek #1 ea 10/10/19 07/03/24 Opal Plus Meter) lancets (Accu-Chek Softclix #100 ea 10/17/19 07/03/24 Lancets) metformin 1,000 mg tablet 1,000 mg PO BID #180 tabs 09/27/23 07/03/24 blood sugar diagnostic (Accu-Chek #100 ea 10/05/23 07/03/24 Opal Plus test strips) nitroglycerin 0.4 mg sublingual 0.4 mg sublingual PRN #25 tab-caps 12/17/23 07/03/24 tablet sildenafil (pulm.hypertension) 20 20 - 100 mg (1 - 5 x 20 mg) PO 12/17/23 07/03/24 mg tablet DAILY PRN sexual activity #30 tab-caps Previous Rx's ?Medication ?Instructions ?Recorded aspirin 81 mg tablet,delayed 81 mg PO DAILY #90 tabs 10/10/19 release (Adult Low Dose Aspirin) blood-glucose meter (Accu-Chek #1 ea 10/10/19 Opal Plus Meter) lancets (Accu-Chek Softclix #100 ea 10/17/19 Lancets) metformin 1,000 mg tablet 1,000 mg PO BID #180 tabs 09/27/23 blood sugar diagnostic (Accu-Chek #100 ea 10/05/23 Opal Plus test strips) nitroglycerin 0.4 mg sublingual 0.4 mg sublingual PRN #25 tab-caps 12/17/23 tablet sildenafil (pulm.hypertension) 20 20 - 100 mg (1 - 5 x 20 mg) PO 12/17/23 mg tablet DAILY PRN sexual activity #30 tab-caps Allergies Allergy/AdvReac Type Severity Reaction Status Date / Time atorvastatin (From Lipitor) Allergy Severe Anaphylaxis Verified 07/03/24 10:26 General Stated Complaint: Chest Pain [place]: 3 Exam Narrative Exam Narrative: Review of Systems: All systems reviewed & are unremarkable except as noted in HPI and below Well-developed, no acute distress NCAT PERRL, normal conjunctiva RRR no murmur Unlabored respiratory effort clear bilaterally Nondistended abdomen soft nontender Extremities w/o edema Course Vital Signs Vital signs: Vital Signs Temperature 36.6 C 07/03/24 09:57 Pulse 64 07/03/24 09:57 Respiratory Rate 16 07/03/24 09:57 Blood Pressure 169/84 H 07/03/24 09:57 Pulse Oximetry 98 07/03/24 09:57 Temperature 36.6 C 07/03/24 09:57 Temperature Source Oral 07/03/24 09:57 Pulse 64 07/03/24 09:57 Respiratory Rate 16 07/03/24 09:57 Respiratory Effort Short of Breath, Labored 07/03/24 10:05 Respiratory Depth Normal 07/03/24 10:05 Blood Pressure 169/84 H 07/03/24 09:57 Blood Pressure Position Supine 07/03/24 09:57 Pulse Oximetry 98 07/03/24 09:57 Oxygen Delivery Method Room Air 07/03/24 09:57 Oxygen Flow Rate 0 07/03/24 09:57 Pain Level 10 07/03/24 09:57 Medical Decision Making Emergent evaluation of acute chest pain. The patient has significant cardiac history and is noncompliant with his baby aspirin. EKG is abnormal, hide compared to prior and there is some concern due to ST elevation in 2 3 aVF that is worse than prior with some worsening depressions in 1 aVL. These lateral leads do not seem significantly changed. Will give full dose aspirin, start nitroglycerin for pain relief. EKG has been sent to [facility] for concern of STEMI. I did discuss with the orthotic fitter who concurs. Given his age, that this is an inferior CT, they did not recommend lysis. Patient has been given 600 mg of Plavix and will be started on heparin infusion. Patient may need IV fluids or pressor support to maintain appropriate blood pressures given his drop in blood pressure on the nitroglycerin drip. No concern for acute CHF or volume overload at this time he has no crackles on exam or lower extremity edema. BNP is not elevated. Chest x-ray reviewed and there is no significant cardiomegaly or pulmonary edema. The remainder of his lab work was reviewed, there is no anemia, renal function is within normal limits. INR is normal. There is mild hyperglycemia. There is no derangement in his LFTs. The patient will be transported via dart for emergent catheterization. Accepting physician Dr. Lo. Quality:[facility] Health Related Social Needs: No Data to Display Critical Care Time Critical Care Time Critical Care Time: Yes Total Critical Care Time: 36 Attestation: CRITICAL CARE Upon my evaluation, this patient had a high probability of imminent or life-threatening deterioration due to STEMI which required my direct attention, intervention, and personal management. I have personally provided 36 minutes of critical care time exclusive of time spent on separately billable procedures. Time includes review of laboratory data, radiology results, discussion with consultants, and monitoring for potential decompensation. Interventions were performed as documented above [facility] All Active Problems (Updated 07/03/24 @ 10:45 by Dahiana Moore MD) Right anterior knee pain (Acute) Breast asymmetry (Acute) Left axillary pain (Acute) Erectile dysfunction (Acute) S/P CABG x 3 (Acute ~10/03/19) [facility] [place] in evolution (Acute 08/03/15) Presence of stent in LAD coronary artery (Chronic) H/O medication noncompliance (Acute 08/03/15) CAD (coronary artery disease) (Chronic) a. stent to LAD 2003 b. has refused statins and aspirin Hyperlipidemia (Chronic) Obesity (Chronic) History of tobacco use (Chronic) ASHD (arteriosclerotic heart disease) (Acute) stable History of tobacco use (Acute) Impaired fasting glucose (Acute 05/03/04) ST elevation myocardial infarction (STEMI) (Acute 05/03/08) stent to LAD Diabetes mellitus (Chronic) needs A1c Medical History Diabetes mellitus CAD (coronary artery disease) Surgical History History of coronary artery stent placement Status post cholecystectomy Status post coronary artery stent placement Tonsillectomy and adenoidectomy Cholecystectomy (04/30/11) DR. OROPEZA H/O surgical procedure a. cholecystectomy b. tonsillectomy c. left carpal tunnel surgery Social History Smoking/Tobacco Use Status: Former Tobacco Use tobacco type: cigarettes and pipe Quit Date: 06/04/1966 Tobacco: How many years used: 10 Smoking risk assessment performed?: Yes Alcohol Intake: current Alcohol Intake frequency: a few times a month Drug use: Never Substance use type: does not use Household members: spouse Housing: house Communication Needs: None Do you need help understanding health information?: Never current occupation: [employer] Pets and animals: Yes Pets and animals: dog(s) Sexually active: Yes Do you think of yourself as: straight/heterosexual What is your relationship status?: How often do you talk on the phone with friends or family?: decline to answer How often do you get together with friends or relatives?: decline to answer How often do you attend confucianism or pentecostal services?: decline to answer Do you belong to any clubs or organized social groups?: decline to answer Panel score (0-1 are the most socially isolated patients): 1 What type of physical activity do you participate in: walking Duration: > 90 minutes/day Frequency: daily Special lala needs: No Do you feel safe at home: Yes Do you feel safe in your relationship?: Yes
[2024-07-03] MEDS: nitroGLYcerin 0.4 MG TAB SL ×2 (10:19→10:38)
[2024-07-03] MEDS: Aspirin 81 MG CHEW 324 MG CH (10:19)
[2024-07-03 10:24] LABS: Abs Immature Grans 0.05 10^3/uL (0.0-0.06); Absolute Basophil Count 0.07 10^3/uL (0.0-0.2); Absolute Eosinophil Count 0.14 10^3/uL (0.0-0.7); Absolute Lymphocyte Count 2.77 10^3/uL (1.2-3.4); Absolute Monocyte Count 0.87 10^3/uL (0.1-0.8); Absolute Neutrophil Count 5.28 10^3/uL (1.2-6.7); Basophils % 0.8 %; Eosinophils % 1.5 %; HCT 45.3 % (40.0-50.0); HGB 15.4 g/dL (13.5-17.5); Immature Grans % 0.5 %; Lymphocytes % 30.2 %; MCV 97 fL (80-95); MPV 10.1 fL (8.0-11.0); Monocytes % 9.5 %; Neutrophils % 57.5 %; Platelet Count 222 10^3/uL (130-400); RBC 4.67 10^6/uL (4.36-5.78); RDW 12.6 % (11.8-14.1); RDW-SD 45.1 fL; WBC 9.18 10^3/uL (4.4-10.8)
[2024-07-03] MEDS: Clopidogrel 300 MG TAB 600 MG PO (10:34)
[2024-07-03 10:38] LABS: PTT Activated 23.9 sec (20.6-30.2); Prothrombin Time 10.1 sec (9.1-11.1)
[2024-07-03] MEDS: Heparin in 0.45% NaCl 25,000 UNIT/250 ML BAG 0.6 UNIT IVINF (10:39)
[2024-07-03 10:47] LABS: ALT 21 U/L (16-63); AST 12 U/L (15-37); Albumin 3.9 g/dL (3.4-5.0); Alkaline Phosphatase 61 U/L (46-116); Anion Gap 4.2 mmol/L (3-11); BUN 20 mg/dL (7-18); Bilirubin, Total 1.04 mg/dL (0.2-1.0); CO2 30.8 mmol/L (21.0-32.0); CREATININE 1.2 mg/dL (0.70-1.30); Calcium 9.4 mg/dL (8.5-10.1); Chloride 106 mmol/L (98-107); Estimated GFR 61.52 (mL/min/1.73m2); Glucose 229 mg/dL (74-106); NT-proBNP 131 pg/mL (<300); Potassium 4.4 mmol/L (3.5-5.1); Sodium 141 mmol/L (136-145); Total Protein 7.2 g/dL (6.4-8.2); Troponin I 15 ng/L (<or=76)
[2024-07-03] MEDS: nitroGLYcerin in D5W 50 MG/250 ML BTL 20 MG IV (10:49)
[2024-07-03] MEDS: Heparin in 0.45% NaCl 25,000 UNIT/250 ML BAG 10 UNIT IVINF (10:50)
[2024-07-03] MEDS: Tenecteplase 50 MG KIT IVP (11:08)
[2024-07-03 11:32] LABS: Troponin I 496 ng/L (<or=76)
== END 2024-07-03 11:33 | disposition short-term general hospital (02) ==
PROVIDERS: Emergency Provider Emergency Medicine; PCP Family Medicine
DX: I21.19 ST elevation (STEMI) myocardial infarction involving other coronary artery of inferior wall (principal); I25.10 Atherosclerotic heart disease of native coronary artery without angina pectoris; E11.9 Type 2 diabetes mellitus without complications; Z95.1 Presence of aortocoronary bypass graft; Z95.5 Presence of coronary angioplasty implant and graft; Z79.84 Long term (current) use of oral hypoglycemic drugs; Z79.82 Long term (current) use of aspirin; Z87.891 Personal history of nicotine dependence
CPT/HCPCS: 36415; 80053; 93005; 96374; 99285; 71045; 83880; 84484; 85025; 85610; 85730; 93010; J1644; J2305; J3101

== ENCOUNTER 2024-07-11 13:57 | Outpatient (CLI) | payer MEDICARE, SELFPAY ==
[2024-07-11 14:14] LABS: HCT 38.1 % (40.0-50.0); HGB 12.7 g/dL (13.5-17.5); MCH 32.8 pg (27.0-33.0); MCHC 33.3 % (32.0-36.0); MCV 98 fL (80-95); MPV 9.9 fL (8.0-11.0); Platelet Count 299 10^3/uL (130-400); RBC 3.87 10^6/uL (4.36-5.78); RDW 12.7 % (11.8-14.1); WBC 8.64 10^3/uL (4.4-10.8)
[2024-07-11 15:06] LABS: ALT 35 U/L (16-63); AST 14 U/L (15-37); Albumin 2.9 g/dL (3.4-5.0); Alkaline Phosphatase 62 U/L (46-116); Anion Gap 5.7 mmol/L (3-11); BUN 20 mg/dL (7-18); CO2 28.3 mmol/L (21.0-32.0); CREATININE 1.1 mg/dL (0.70-1.30); Calcium 9.1 mg/dL (8.5-10.1); Chloride 107 mmol/L (98-107); Estimated GFR 68.29 (mL/min/1.73m2); Glucose 172 mg/dL (74-106); Potassium 4.2 mmol/L (3.5-5.1); Sodium 141 mmol/L (136-145); Total Protein 6.6 g/dL (6.4-8.2)
== END 2024-07-11 13:58 | disposition home or self-care (01) ==
PROVIDERS: PCP Family Medicine; Visit Provider Nurse Practitioner Family
DX: I21.3 ST elevation (STEMI) myocardial infarction of unspecified site (principal)
CPT/HCPCS: 36415; 80053; 85027